=== PATIENT | female | born 1990 | race Caucasian/White ===

== ENCOUNTER 2017-04-12 06:24 | Inpatient (IN) | payer BC, MEDICAID ==
[2017-04-12] MEDS ORDERED: Nalbuphine 20 MG/1 ML Amp IVPUSH PRN (07:07)
[2017-04-12] MEDS ORDERED: Sodium Chloride 0.9% 10 ML Syringe FLUSH PRN (07:07)
[2017-04-12] MEDS ORDERED: Lactated Ringers 1,000 ML IV SCH (07:15)
[2017-04-12] MEDS ORDERED: Oxytocin/Lactated Ringers 10 UNIT/1,000 ML BAG IV SCH (07:15)
--- NOTE | 2017-04-12 07:32 | PCM.LDHP ---
L&D History of Present Illness - General Date of Service: 04/12/17 Admit Problem/Dx: Patient Status Order with Admit Dx/Problem 04/12/17 07:08 Patient Status [ADT] Routine Admission Diagnosis/Problem Admission Diagnosis/Problem 04/12/17 07:22 4 para 3003, 40-1/7 weeks gestational age , active labor with advanced cervical dilation of 7 cm. Source of Information: Patient History Limitations: Reports: No Limitations - History of Present Illness Introduction:: Shanel is a 26-year-old 4 para 3003 white female who is admitted in active labor with advanced cervical dilation of 7 cm. She has bulging bag aranda. Her LMP was 02/26/2016 but ultrasound dating is by an ultrasound done at 8-3/7 weeks gestational age on 09/02/2016. Patient started in labor early this a.m. and upon admission was found to be significantly dilated bulging bag aranda. heart tones are reassuring. 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 [place] 04/11/2017. Her past deliveries include the followin. Term intrauterine delivered on 08/09/2008 at 38-0/7 weeks gestational age. 5 lbs. 13 oz. female. 2. Term delivered 04/06/2010 at 37-0/7 weeks gestational age 7 lbs. 1 oz. male delivered vaginally. 3. Term delivered on 03/25/2014 at 40-0/7 weeks gestational age. Vaginal delivery, 6 lbs. 15 oz. female. This has been unremarkable. Patient's initial care was on . She has had regular care and is made good fundal height growth, weight gain has been approximately 134 up to 155 pounds. Her vital signs are stable. She is Rh- and has had RhoGAM. Laboratory testing and blood is A- with negative screen. Initial labs showed hemoglobin 13.2 and platelets 220,000. Her daughter shows immunity. RPR is nonreactive. Hepatitis B surface antigen and HIV assays were negative. Chlamydia and gonorrhea were not detected. Urine culture was unremarkable. Second trimester hemoglobin was 12.9 and platelets are 190,000. One-hour GTT was normal at 85 mg/dL. RPR is nonreactive in third trimester. Group B strep screen was negative. Allergies: Cefaclor Medications: 1. vitamins Past medical history: 1. Vaginal delivery 3 Past surgical history: 1. [place] teeth extraction Family history: Paternal grandfather stroke history. Mother and father are alive and well. Sr. with no concerns. Maternal grandfather with cancer type unknown paternal grandmother with cervical cancer. No bleeding, blood clotting, anesthesia or asthma problems noted in the family. Social history: Patient is single. Significant other is John Paul. She is not using any significant muscle L Jayesh, drugs or tobacco. 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 Review of systems: Vision is in general doing very well she is having contractions but seems to tolerating very well. Baby's been active. Skin: Negative Cardiovascular: No chest pain or exercise intolerance Respiratory: No shortness of breath or infectious symptoms Breasts: Changes associated with . Patient does plan to breast-feed. GI: Negative : Changes so sensitive Neurological: Negative Musca skeletal: Occasional lower extremity edema. Physical exam: In general patient is a well-built, well-nourished, pleasant gal stated age and acute distress. She is alert and oriented 3 and appears to be good historian. Skin is warm and dry without lesions HEENT, neck and back within normal limits Cardiovascular exam shows regular rhythm Lungs are clear with good breath sounds in all lung plummer. Breasts exam is deferred. Abdomen is protuberant with . Fundal height consistent with term . Baby in vertex presentation by Hosea maneuvers. Cervical exam: 7 cm, 100% effaced, very soft, anterior, bulging bag aranda which is ruptured resulting in clear amniotic fluid, -2 station. Extremities and neurological exam grossly within normal limits. - Related Data Allergies/Adverse Reactions: Allergies Allergy/AdvReac Type Severity Reaction Status Date / Time cefaclor [From [facility]] Allergy Rash Verified 04/12/17 07:11 Home Medications: Home Meds Ferrous Sulfate 325 mg PO BIDM #100 tab 03/27/14 [Rx] Ibuprofen [Motrin] 600 mg PO Q4H PRN #30 tablet 03/27/14 [Rx] Vit with Ca/FA/Iron [ Plus Iron] 1 each PO DAILY #100 tablet [Rx] Past Medical History - Past Health History Medical/Surgical History: Denies Medical/Surgical History Social & Family History - Tobacco Use Smoking Status *Q: Never Smoker Second Hand Smoke Exposure: No - Alcohol Use Days Per Week of Alcohol Use: 0 - Recreational Drug Use Recreational Drug Use: No H&P Review of Systems - Review of Systems: Review Of Systems: See Below L&D Exam - Exam Exam: See Below - Vital Signs Vital Signs: Last Vital Signs Temp 36.2 C 04/12/17 06:45 Pulse 98 04/12/17 06:45 Resp 18 04/12/17 06:45 BP 135/96 H 04/12/17 06:45 Pulse Ox Weight: 74.48 kg Problem List Initiated/Reviewed/Updated: Yes Orders Last 24hrs: Active Orders 24 hr Category Date Time Status Patient Status [ADT] Routine ADT 04/12/17 07:08 Active Activity as Tolerated [RC] PFP Care 04/12/17 07:08 Active Communication Order [RC] ASDIRECTED Care 04/12/17 07:08 Active Heart Tones [RC] ASDIRECTED Care 04/12/17 07:08 Active Notify Provider [RC] PFP Care 04/12/17 07:08 Active Notify Provider [RC] PRN Care 04/12/17 07:08 Active Peripheral IV Care [RC] . DIRECTED Care 04/12/17 07:08 Active Vital Signs [RC] PER UNIT ROUTINE Care 04/12/17 07:08 Active CBC WITH AUTO DIFF [HEME] Stat Lab 04/12/17 07:07 Ordered Lactated Ringers [Ringers, Lactated] 1,000 ml Med 04/12/17 07:15 Active IV ASDIRECTED Nalbuphine [Nubain] Med 04/12/17 07:07 Active 10 mg IVPUSH Q2H PRN Oxytocin/Lactated Ringers [Pitocin in LR 10 Units/1,000 Med 04/12/17 07:15 Active ML] 10 unit in 1,000 ml IV .CONTINUOUS Sodium Chloride 0.9% [Saline Flush] Med 04/12/17 07:07 Active 10 ml FLUSH ASDIRECTED PRN Electronic Heart Tones Ext w TOCO [WOMSER] Oth 04/12/17 07:08 Ordered Routine Electronic Heart Tones Internal [WOMSER] Per Unit Oth 04/12/17 07:08 Ordered Routine Peripheral IV Insertion Adult [OM.PC] Routine Oth 04/12/17 07:08 Ordered Resuscitation Status Routine Resus Stat 04/12/17 07:07 Ordered Medication Orders Lactated Ringer's (Ringers, Lactated) 1,000 mls @ 100 mls/hr IV ASDIRECTED CLEO Oxytocin/Lactated Ringer's (Pitocin In Lr 10 Units/1,000 Ml) 10 unit in 1,000 mls @ 500 mls/hr IV .CONTINUOUS CLEO Nalbuphine HCl (Nubain) 10 mg IVPUSH Q2H PRN PRN Reason: Pain (moderate 4-6) Sodium Chloride (Saline Flush) 10 ml FLUSH ASDIRECTED PRN PRN Reason: Keep Vein Open Assessment/Plan Comment:: Assessment: 1. 40-17 week intrauterine , active labor, advanced cervical dilation 2. Group B strep screen negative 3. Rubella immune 4. Patient plans to breast-feed. 5. Patient desires to have natural labor 6. Rh- blood typecandidate for Rh immunoglobulin if blood is Rh+ Plan: 1. Anticipate normal spontaneous vaginal delivery. 2. Support breast-feeding decision 3. Nubain when necessary per patient desire 4. Rh immune globulin as indicated.
--- NOTE | 2017-04-12 08:50 | PCM.SN ---
- Free Text/Narrative Note: Shanel is 26-year-old 4 now para 4004 white female at 40-1/7 weeks gestational age with an [place] of 04/11/2017. She began roberta this a.m. at approximately 0500 hrs. She was seen in labor and delivery at which time she was found to be 7 cm dilated, 100% effaced, posterior bag aranda, anterior, -2 station. Artificial rupture membranes was undertaken as patient wished to proceed with a natural delivery. She progressed rapidly until approximately 0820 at which time she began pushing. With 2 contractions she pushed well and delivered a viable, leroy, male infan with Apgars of's 9 and 9, a weight of 3540 g (7 pounds 12.5 ounces), a length of 20 inches. Baby delivered in a direct occiput anterior position. The perineum was intact and normal stitches were needed. Baby was placed on mom's abdomen. Cord was clamped 2. Father then cut the cord. Cord was found to have 3 vessels. Cord blood was obtained. Pitocin was administered IV to facilitate increasing uterine tone and reduce risk of bleeding. The placenta delivered at 0831 hrs. in a [place], appeared intact and complete and was discarded per patient desire. Estimated blood loss was 100 mL. Patient plans to breast-feed. Condition: Good
[2017-04-12] MEDS ORDERED: Benzocaine/Menthol 20%-0.5% Spray 56 GM Canister TOP PRN (10:01)
[2017-04-12] MEDS ORDERED: Acetaminophen 325 MG Tab PO PRN (10:01)
[2017-04-12] MEDS ORDERED: Witch Hazel Medicated Pads 100/Jar TOP PRN (10:01)
[2017-04-12] MEDS ORDERED: Docusate Sodium 100 MG Cap PO PRN (10:01)
[2017-04-12] MEDS ORDERED: Lanolin 100% Cream 7 GM Tube TOP PRN (10:01)
[2017-04-12] MEDS: Prenatal Multivitamin with Calcium/Folic Acid/Iron Tab PO SCH (10:16)
[2017-04-12] MEDS: Ibuprofen 600 MG Tab PO PRN ×2 (10:17→22:29)
[2017-04-12] MEDS ORDERED: FLU Vacc QS 2017-18 (6mos UP)/PF 60 MCG/0.5 ML Syringe IM ONE (11:00)
[2017-04-13] MEDS: Prenatal Multivitamin with Calcium/Folic Acid/Iron Tab PO SCH (08:28)
[2017-04-13] MEDS: Ibuprofen 600 MG Tab PO PRN (08:28)
--- NOTE | 2017-04-13 08:54 | PCM.DCSUM1 ---
Discharge Summary - Hospital Course Free Text/Narrative:: Shanel is 26-year-old 4 now para 4004 white female at 40-1/7 weeks gestational age with an [place] of 04/11/2017. She began roberta this a.m. at approximately 0500 hrs. She was seen in labor and delivery at which time she was found to be 7 cm dilated, 100% effaced, posterior bag aranda, anterior, -2 station. Artificial rupture membranes was undertaken as patient wished to proceed with a natural delivery. She progressed rapidly until approximately 0820 at which time she began pushing. With 2 contractions she pushed well and delivered a viable, leroy, male infan with Apgars of's 9 and 9, a weight of 3540 g (7 pounds 12.5 ounces), a length of 20 inches. Baby delivered in a direct occiput anterior position. The perineum was intact and normal stitches were needed. Baby was placed on mom's abdomen. Cord was clamped 2. Father then cut the cord. Cord was found to have 3 vessels. Cord blood was obtained. Pitocin was administered IV to facilitate increasing uterine tone and reduce risk of bleeding. The placenta delivered at 0831 hrs. in a [place], appeared intact and complete and was discarded per patient desire. Estimated blood loss was 100 mL. Patient plans to breast-feed. Pp is doing well. Desires discharge today. - Discharge Data Discharge Date: 04/13/17 Discharge Disposition: Home, Self-Care 01 Condition: Good - Patient Instructions Diet: Regular Diet as Tolerated Activity: As Tolerated Driving: May Drive Today Showering/Bathing: May Shower Showering/Bathing, Other: May bathe Notify Provider of: Fever, Increased Pain, Swelling and Redness, Nausea and/or Vomiting - Discharge Plan Home Medications: Home Meds Ferrous Sulfate 325 mg PO BIDM #100 tab 03/27/14 [Rx] Ibuprofen [Motrin] 600 mg PO Q4H PRN #30 tablet 03/27/14 [Rx] Vit with Ca/FA/Iron [ Plus Iron] 1 each PO DAILY #100 tablet [Rx] Referrals: Cheyanne Valenzuela MD [Primary Care Provider] - (RTC-2 weeks.) - Discharge Summary/Plan Comment DC Time >30 min.: No Discharge Summary/Plan Comment: Discharge instructions: 1. Discharge home 2. Diet, activity and follow-up discussed with patient. Recommend nursing diet with increased calories and calcium. 3. Precautions given concern increased pain, bleeding, temperature, signs/ symptoms of DVT/PE. 4. Medications per home medication was printed, discussed with and given to the patient. 5. Return to clinic-Dr. Valenzuela at [facility] in 2 weeks. Diagnosis: Term -delivered Condition: Good - Patient Data Vitals - Most Recent: Last Vital Signs Temp 36.2 C 04/13/17 04:00 Pulse 82 04/13/17 03:45 Resp 17 04/13/17 03:45 BP 121/80 04/13/17 03:45 Pulse Ox 100 04/13/17 03:45 Weight - Most Recent: 74.48 kg I&O - Last 24 hours: Intake & Output 04/12/17 04/13/17 04/13/17 22:59 06:59 14:59 Intake Total 2 Balance 2 Lab Results - Last 24 hrs: Laboratory Results - last 24 hr 04/12/17 04/13/17 Range/Units 14:24 05:54 WBC 11.82 H (3.98-10.04) K/mm3 RBC 3.14 L (3.98-5.22) M/mm3 Hgb 10.1 L (11.2-15.7) gm/L Hct 29.1 L (34.1-44.9) % MCV 92.7 (79.4-94.8) fl MCH 32.2 (25.6-32.2) pg MCHC 34.7 (32.2-35.5) g/dl RDW Std Deviation 42.0 (36.4-46.3) fL Plt Count 181 L (182-369) K/mm3 MPV 9.7 (9.4-12.3) fl Blood Type A NEGATIVE Gel Antibody Screen Negative Screen 0 ros/5 flds - neg RhIG Candidate? Yes Rhogam Indicated Yes, baby rh pos H Med Orders - Current: Current Medications Acetaminophen (Tylenol) 650 mg PO Q4H PRN PRN Reason: mild pain or fever Benzocaine/Menthol (Dermoplast Pain Relief [place]) 0 gm TOP ASDIRECTED PRN PRN Reason: Perineal Comfort Measure Docusate Sodium (Colace) 100 mg PO BID PRN PRN Reason: Constipation Emollient Ointment (Lansinoh Hpa) 0 gm TOP ASDIRECTED PRN PRN Reason: Sore Nipples Ibuprofen (Motrin) 600 mg PO Q4H PRN PRN Reason: Mild pain or fever Last Admin: 04/13/17 08:28 Dose: 600 mg Prenat Multivit/[place]/Iron/Folic Ac ( Plus Iron) 1 each PO DAILY CLEO Last Admin: 04/13/17 08:28 Dose: 1 each Luisa Nina (Tucks) 1 pad TOP ASDIRECTED PRN PRN Reason: Hemorrhoid pain Discontinued Medications Lactated Ringer's (Ringers, Lactated) 1,000 mls @ 100 mls/hr IV ASDIRECTED CLEO Oxytocin/Lactated Ringer's (Pitocin In Lr 10 Units/1,000 Ml) 10 unit in 1,000 mls @ 500 mls/hr IV .CONTINUOUS CLEO Last Admin: 04/12/17 08:31 Dose: 500 mls/hr Influenza Virus Vaccine (Pharmacy To Dose - Influenza Vaccine) 1 each IM ONETIME ONE Stop: 04/12/17 10:51 Influenza Virus Vaccine (Flulaval Quad [id number]) 60 mcg IM .ONCE ONE Stop: 04/12/17 11:01 Nalbuphine HCl (Nubain) 10 mg IVPUSH Q2H PRN PRN Reason: Pain (moderate 4-6) Sodium Chloride (Saline Flush) 10 ml FLUSH ASDIRECTED PRN PRN Reason: Keep Vein Open *Q Meaningful Use (DIS) - VTE *Q VTE Criteria *Q: - Stroke *Q Stroke Criteria *Q: - AMI *Q AMI Criteria *Q:
[2017-04-13 10:21] VITALS: BP 132/86
== END 2017-04-13 11:30 | disposition home or self-care (01) | DRG 560 ==
LOC: JD.OB 06:24 → JD.OBCHECK 06:24 → JD.OB 07:08 → OBSVTOIN 08:26 → JD.OB 08:26
PROVIDERS: ADMIT Obstetrics & Gynecology; ATTEND Obstetrics & Gynecology
PROC: 10E0XZZ Delivery of Products of Conception, External Approach (ICD-10-PCS; principal; 2017-04-12)
PROC: 10907ZC Drainage of Amniotic Fluid, Therapeutic from Products of Conception, Via Natural or Artificial Opening (ICD-10-PCS; 2017-04-12)
DX: O80 Encounter for full-term uncomplicated delivery (principal); Z3A.40 40 weeks gestation of pregnancy; Z37.0 Single live birth; Z88.8 Allergy status to other drugs, medicaments and biological substances
CPT/HCPCS: 36415; 59409; 85025; 85027; 85461; 86850; 86900; 86901; A9270-GY; J2590; J2790

== ENCOUNTER 2023-09-04 06:36 | Inpatient (IN) | payer BC, OTHER ==
[2023-09-04] MEDS ORDERED: Ondansetron 4 MG/2 ML SDV IVPUSH PRN (06:43)
[2023-09-04] MEDS ORDERED: Acetaminophen 325 MG Tab PO PRN (06:43)
[2023-09-04] MEDS ORDERED: Lidocaine 1% 50 ML MDV INJECT PRN (06:43)
[2023-09-04] MEDS ORDERED: Calcium Carbonate 500 MG Tab.Chew PO PRN (06:43)
[2023-09-04 07:09] LABS: BASOPHILS PERCENT AUTO 0.2 % (0.0-1.0); EOSINOPHILS ABSOLUTE AUTO 0.1 K/mm3 (0.0-0.4); EOSINOPHILS PERCENT AUTO 0.7 % (0.0-6.0); HEMATOCRIT 35.2 % (37.0-47.0); HEMOGLOBIN 12.7 gm/dl (12.0-16.0); IMMATURE GRAN ABSOLUTE AUTO 0.04 K/mm3 (0.00-0.05); IMMATURE GRAN PERCENT AUTO 0.5 % (0.0-0.4); LYMPHOCYTES ABSOLUTE AUTO 2.2 K/mm3 (1.0-4.8); LYMPHOCYTES PERCENT AUTO 25.5 % (24.0-44.0); MEAN CORPUSCULAR HEMOGLOBIN 33.4 pg (28.0-32.0); MEAN CORPUSCULAR HGB CONC 36.1 g/dl (32.0-36.0); MEAN CORPUSCULAR VOLUME 92.6 fl (83.0-99.0); MEAN PLATELET VOLUME 9.8 fl (9.4-12.3); MONOCYTES ABSOLUTE AUTO 0.8 K/mm3 (0.0-0.8); MONOCYTES PERCENT AUTO 9.6 % (0.0-8.0); NEUTROPHILS ABSOLUTE AUTO 5.5 K/mm3 (1.8-7.7); NEUTROPHILS PERCENT AUTO 63.5 % (41.0-71.0); PLATELET COUNT,PLT 191 K/mm3 (150-400); WHITE BLOOD CELL COUNT,WBC 8.68 K/mm3 (3.9-11.3)
[2023-09-04] MEDS: Lactated Ringers 1,000 ML IV SCH (07:35)
[2023-09-04] MEDS: Ampicillin 2 GM in Sodium Chloride 0.9% 100 ML IV ONE (07:41)
[2023-09-04 09:03] LABS: CREATININE 0.8 mg/dL (0.55-1.02); EST CRCL DRUG DOSING (CG) 82.74 mL/min; URIC ACID 5.7 mg/dL (2.6-6.0)
[2023-09-04 09:32] LABS: CREATININE,URINE RAND 66.6 mg/dL (30.0-125.0); PROTEIN CREATININE RATIO,URINE 118.6 mg/g (0-149); PROTEIN,URINE RANDOM 7.9 mg/dL (0.0-11.8)
[2023-09-04] MEDS: Oxytocin/Lactated Ringers 30 UNIT/500 ML BAG IV SCH ×2 (09:38→16:34)
[2023-09-04] MEDS: Ampicillin 1 GM in Sodium Chloride 0.9% 100 ML IV SCH (11:40)
[2023-09-04] MEDS ORDERED: diphenhydrAMINE 50 MG/ML SDV IVPUSH PRN (14:12)
[2023-09-04] MEDS ORDERED: Bupivacaine/fentaNYL/NS 100 ML Bag EPIDUR PRN (14:12)
[2023-09-04] MEDS ORDERED: ePHEDrine 50 MG/ML SDV IVPUSH PRN (14:12)
[2023-09-04] MEDS: Nalbuphine 10 MG/ML Syringe IVPUSH PRN (14:52)
[2023-09-04] MEDS: fentaNYL 100 MCG/2 ML SDV EPIDUR PRN (17:00)
[2023-09-04] MEDS: Tranexamic Acid 1,000 MG/10 ML Vial ONE (17:02)
[2023-09-04] MEDS ORDERED: Ibuprofen 600 MG Tab PO PRN (17:32)
[2023-09-04] MEDS: cefOXitin 2 GM in Sodium Chloride 0.9% 50 ML IV ONE (18:10)
[2023-09-04] MEDS: Benzocaine/Menthol 20%-0.5% Spray 78 GM Cannister TOP PRN (20:07)
[2023-09-04] MEDS: Witch Hazel Medicated Pads 40/Jar TOP PRN (20:08)
[2023-09-04] MEDS: fentaNYL 100 MCG/2 ML SDV IVPUSH ONE (23:08)
[2023-09-04] MEDS: Acetaminophen 325 MG Tab PO SCH (23:08)
[2023-09-05 05:48] LABS: MEAN CORPUSCULAR HEMOGLOBIN 33.2 pg (28.0-32.0); MEAN CORPUSCULAR HGB CONC 36.4 g/dl (32.0-36.0); MEAN CORPUSCULAR VOLUME 91.2 fl (83.0-99.0); MEAN PLATELET VOLUME 9.8 fl (9.4-12.3); PLATELET COUNT,PLT 176 K/mm3 (150-400); RED BLOOD CELL COUNT 3.07 M/mm3 (4.10-5.30); WHITE BLOOD CELL COUNT,WBC 14.39 K/mm3 (3.9-11.3)
[2023-09-05 06:02] LABS: HEMOGLOBIN 10.2 gm/dl (12.0-16.0)
[2023-09-05 07:41] VITALS: BP 127/87; PULSE 75
== END 2023-09-05 17:40 | disposition home or self-care (01) | DRG 560 ==
LOC: JD.OB 06:36 → OBSVTOIN 15:39 → JD.OB 15:39
PROVIDERS: ADMIT Obstetrics & Gynecology; ATTEND Obstetrics & Gynecology
PROC: 10E0XZZ Delivery of Products of Conception, External Approach (ICD-10-PCS; principal; 2023-09-04)
PROC: 10907ZC Drainage of Amniotic Fluid, Therapeutic from Products of Conception, Via Natural or Artificial Opening (ICD-10-PCS; 2023-09-04)
PROC: 3E033VJ Introduction of Other Hormone into Peripheral Vein, Percutaneous Approach (ICD-10-PCS; 2023-09-04)
PROC: 0UC97ZZ Extirpation of Matter from Uterus, Via Natural or Artificial Opening (ICD-10-PCS; 2023-09-04)
PROC: 3E0R3BZ Introduction of Anesthetic Agent into Spinal Canal, Percutaneous Approach (ICD-10-PCS; 2023-09-04)
PROC: 00HU33Z Insertion of Infusion Device into Spinal Canal, Percutaneous Approach (ICD-10-PCS; 2023-09-04)
DX: O48.0 Post-term pregnancy (principal); Z37.0 Single live birth; Z88.8 Allergy status to other drugs, medicaments and biological substances; Z3A.40 40 weeks gestation of pregnancy
CPT/HCPCS: 36415; 36430; 59025; 59409; 82565; 82570; 83615; 84156; 84450; 84460; 84520; 84550; 85025; 85027; 85461; 86592; 86850; 86870; 86900; 86901; J0290; J0694; J2300; J2790; J3010; J3490; J7120; J7999

== ENCOUNTER 2023-10-01 02:47 | Emergency (ER) | payer BC, OTHER ==
[2023-10-01 04:14] VITALS: BP 135/80; PULSE 88
== END 2023-10-01 04:19 | disposition home or self-care (01) ==
LOC: JD.ED 02:47
DX: M54.6 Pain in thoracic spine (principal); N64.4 Mastodynia; Z79.899 Other long term (current) drug therapy; Z88.1 Allergy status to other antibiotic agents
CPT/HCPCS: 99283